=== PATIENT | male | born 1945 | race Caucasian/White ===

== ENCOUNTER 2018-07-30 05:44 | Inpatient (IN) | payer OTHER, BC ==
--- NOTE | 2018-07-30 06:01 | PDANEPAE ---
ANE History of Present Illness TLIF and instrumentation L4-5 ANE Past Medical History - Cardiovascular History Hx Hypertension: No Hx Arrhythmias: Yes Hx Chest Pain: No Hx Coronary Artery / Peripheral Vascular Disease: No Hx CHF / Valvular Disease: No Hx Palpitations: No Cardiovascular History Comment: Frequent PACs and PVCs - VERAPAMIL. Echo on with nl LVEF, mild AR - Pulmonary History Hx COPD: No Hx Asthma/Reactive Airway Disease: No Hx Recent Upper Respiratory Infection: No Hx Oxygen in Use at Home: No Hx Sleep Apnea: No Sleep Apnea Screening Result - Last Documented: Negative - Neurologic History Hx Cerebrovascular Accident: No Hx Seizures: No Hx Dementia: No - Endocrine History Hx Diabetes: No Hypothyroid: No Hyperthyroid: No Obesity: no - Renal History Hx Renal Disorders: No Renal History Comment: TURP - Liver History Hx Hepatic Disorders: No - Neurological & Psychiatric Hx Hx Neurological and Psychiatric Disorders: No - Cancer History Hx Cancer: No - Congenital Disorder History Hx Congenital Disorders: No - GI History GERD: no Hx Gastrointestinal Disorders: No - Other Health History Other Health History: NEG - Chronic Pain History Chronic Pain: Yes (LOW BACK & LEG) - Surgical History Prior Surgeries: HERNIA. TURP ANE Review of Systems Review of Systems: - Exercise capacity METS (RN): 4 METS ANE Patient History - Allergies Allergies/Adverse Reactions: No Known Allergies Allergy (Verified 01/09/14 07:14) - Home Medications Home Medications: Aspirin [Aspirin 81mg (*)] 81 mg PO DAILY 07/17/18 [Last Taken 07/23/18] Magnesium Oxide [Magnesium Oxide 400 mg (*)] 400 mg PO DAILY 07/17/18 [Last Taken 07/29/18] Sulindac [Clinoril 200 MG (*)] 200 mg PO DAILY PRN 07/17/18 [Last Taken Unknown] Verapamil [Calan 120MG (*)] 120 mg PO DAILY 07/17/18 [Last Taken 07/29/18] cycloSPORINE 0.05% [Restasis] 1 each OP DAILY 07/17/18 [Last Taken 07/29/18] - Anes Hx Anes Hx: no prior problems - Smoking Hx Smoking Status: Former smoker (stopped 40 years) - Alcohol Use Alcohol Use: Other (4 drinks/week) - Family Anes Hx Family Anes Hx: none ANE Labs/Vital Signs - Vital Signs Blood Pressure: 130/85 Heart Rate: 69 Height: 160.02 cm Weight: 62.142 kg ANE Physical Exam - Airway Neck exam: FROM Mallampati Score: Class 3 Mouth exam: normal dental/mouth exam, small mouth opening, abnormal chin - Pulmonary Pulmonary: clear to auscultation - Cardiovascular Cardiovascular: regular rate and rhythym - ASA Status ASA Status: III ANE Anesthesia Plan Anesthesia Plan: general endotracheal anesthesia
[2018-07-30] MEDS ORDERED: GABAPENTIN 300 MG CAP PO ONE (06:09)
[2018-07-30] MEDS ORDERED: ACETAMINOPHEN 500 MG TAB PO ONE (06:09)
[2018-07-30] MEDS ORDERED: ceFAZolin 2 GM/DEXTROSE 100 ML IV ONE (06:09)
[2018-07-30] MEDS ORDERED: LR 1,000 ML IV ONE (06:10)
--- NOTE | 2018-07-30 06:38 | PDHPUP ---
History & Physical Update H&P update statement: This history and physical update is based on an assessment of the patient which was completed after admission or registration (within 24 hours), but prior to the surgery/procedure. H&P update: H&P reviewed & patient examined, no change in patient's condition since H&P completed
[2018-07-30] MEDS ORDERED: SULINDAC 200 MG TAB PO PRN (06:42)
[2018-07-30] MEDS ORDERED: CHLORHEXIDINE GLUC HIBICLENS 118 ML BTL TP ONE (06:49)
[2018-07-30] MEDS ORDERED: BUPIVACAINE 0.25% 30 ML SDV ONE (06:49)
[2018-07-30] MEDS ORDERED: BACITRACIN 50,000 UNITS/10 ML SYR IRR ONE (06:50)
[2018-07-30] MEDS ORDERED: EPINEPHrine 1 MG/ML INJ ONE (06:50)
[2018-07-30] MEDS ORDERED: THROMBIN (BOVINE) 5,000 UNIT VIAL TP ONE (06:50)
[2018-07-30] MEDS ORDERED: KETAMINE 200 MG/20 ML VIAL ONE (07:01)
[2018-07-30] MEDS ORDERED: PROPOFOL/EMULSION 500 MG/50 ML BOTTLE IV ONE (07:01)
[2018-07-30] MEDS ORDERED: ROCURONIUM 50 MG/5 ML VIAL ONE (07:01)
[2018-07-30] MEDS ORDERED: DEXAMETHASONE 4 MG/ML VIAL ONE (07:01)
[2018-07-30] MEDS ORDERED: fentaNYL 250 MCG/5 ML INJ ONE (07:02)
[2018-07-30] MEDS ORDERED: MIDAZOLAM 2 MG/2 ML VIAL ONE (07:14)
[2018-07-30] MEDS ORDERED: BISACODYL 10 MG SUPP PR PRN (07:43)
[2018-07-30] MEDS ORDERED: ONDANSETRON DISINTEGRATING 4 MG TAB PO PRN (07:43)
[2018-07-30] MEDS ORDERED: METHOCARBAMOL 750 MG TAB PO PRN (07:43)
[2018-07-30] MEDS ORDERED: diphenhydrAMINE 25 MG CAP PO PRN (07:43)
[2018-07-30] MEDS ORDERED: HYDROmorphONE/DILAUDID 1 MG/ML INJ IVP PRN (07:43)
[2018-07-30] MEDS ORDERED: POLYETHYLENE GLYCOL 3350 17 GM PKT PO PRN (07:43)
[2018-07-30] MEDS ORDERED: MAGNESIUM HYDROXIDE 30 ML UDCUP PO PRN (07:43)
[2018-07-30] MEDS ORDERED: ONDANSETRON 4 MG/2 ML VIAL IVP PRN ×2 (07:43→10:35)
[2018-07-30] MEDS ORDERED: LACTULOSE 20 GM/30 ML UDCUP PO PRN (07:43)
[2018-07-30] MEDS ORDERED: oxyCODONE IR 5 MG TAB PO PRN (07:43)
[2018-07-30] MEDS ORDERED: PHENYLEPHRINE HCL 100 MCG/ML SYR ONE (07:45)
[2018-07-30] MEDS ORDERED: PHENYLEPHRINE 10 MG/ML SDV ONE (08:33)
[2018-07-30] MEDS ORDERED: ePHEDrine SULFATE 25 MG/5 ML SYR ONE (09:17)
[2018-07-30] MEDS ORDERED: ONDANSETRON 4 MG/2 ML VIAL ONE (10:00)
[2018-07-30] MEDS ORDERED: PROPOFOL 200 MG/20 ML VIAL ONE (10:04)
[2018-07-30] MEDS ORDERED: NALOXONE HCL 0.4 MG/ML INJ IVP PRN (10:35)
[2018-07-30] MEDS ORDERED: HYDROmorphONE/DILAUDID 2 MG/ML INJ IVP PRN (10:35)
--- NOTE | 2018-07-30 10:48 | POSTOPPROG ---
Post Op Note Date of Operation: 07/30/18 Surgeon: Vern Ortega Floor Winder: ALEC Rivas Anesthesiologist: MD Brett Anesthesia: GET(General Endotracheal), Local (Specify) Pre-op Diagnosis: lumbar stenosis L4/5 Post-op Diagnosis: lumbar stenosis L4/5 Indication: BLE pain Procedure: TLIF L4/5 Findings: see op report Inf/Abcess present in the surg proc area at time of surgery?: No Depth: Deep Incisional (Fascial) EBL: 100-500 Total fluids administered: see anesthesia record Complications: none Drains: Adair Walker
[2018-07-30] MEDS ORDERED: SUGAMMADEX SODIUM 200 MG/2 ML VIAL IVP ONE (10:50)
--- NOTE | 2018-07-30 10:51 | SOAPPROG ---
SOAP Progress Note Assessment/Plan: Post Op Visit: S: Awake and alert. NAD. Pt with expected lower back pain O: AFVSS/PERRLA/EOMI No droop CN 2-12 grossly intact +lt touch 5/5 BUE/BLE = CDI TITA in place A/P: 72 yo male that is s/p TLIF L4/5 -orders in place -call with any questions or concerns -take medications as directed -seen by Dr Ortega as well -PT/OT ordered -brace when out of bed Objective: Vital Signs Temp Pulse Resp BP Pulse Ox 69 130/85 H 07/30/18 08:10 07/30/18 08:10 ICD10 Worksheet Patient Problems: Problems Problem Status Onset Arthrodesis status Acute Lumbago Acute Lumbar radicular pain Acute Lumbar spine pain Acute Lumbar stenosis Acute - ICD10 Problem Qualifiers (1) Lumbar spine pain (2) Lumbago (3) Lumbar stenosis (4) Lumbar radicular pain (5) Arthrodesis status
--- NOTE | 2018-07-30 11:03 | POSTANESTH ---
Post Anesthetic Evaluation Cardiovascular Status: Similar to Pre-Op Cond Respiratory Status: Normal, Stable Level of Consciousness/Mental Status: Can Participate in Eval Pain Control: Adequate, Prn Tx Ordered Nausea/Vomiting Control: Adequate, Prn Tx Ordered Complications Possibly Related to Anesthesia: None Noted
--- NOTE | 2018-07-30 11:05 | PDMN ---
Medical Necessity Medical necessity: MCG S820 Lumbar Fusion 3 days: 72yo s/p L4/5 TLIF Lum Guevara Fusion w/ MARIELLA Andrade IP only
[2018-07-30] MEDS ORDERED: fentaNYL 100 MCG/2 ML INJ ONE (11:13)
[2018-07-30] MEDS ORDERED: METHOCARBAMOL 750 MG TAB ONE (11:14)
[2018-07-30] MEDS: fentaNYL 100 MCG/2 ML INJ IVP PRN ×2 (11:16→11:36)
[2018-07-30] MEDS ORDERED: HYDROmorphONE/DILAUDID 2 MG/ML INJ ONE (11:34)
[2018-07-30] MEDS: NS 1,000 ML IV SCH ×3 (13:21→22:34)
[2018-07-30] MEDS: FAMOTIDINE 20 MG TAB PO SCH ×2 (13:32→20:19)
[2018-07-30] MEDS: SENNOSIDES/DOCUSATE SODIUM TAB PO SCH ×3 (13:33→20:19)
[2018-07-30] MEDS ORDERED: VERAPAMIL 120 MG TAB PO SCH ×2 (14:15→20:00)
[2018-07-30] MEDS: GABAPENTIN 300 MG CAP PO SCH ×2 (14:26→22:11)
[2018-07-30] MEDS: ACETAMINOPHEN 500 MG TAB PO SCH ×2 (14:26→22:11)
--- NOTE | 2018-07-30 15:08 | GOP ---
DATE OF OPERATION: 07/30/2018 SURGEON: Victor Manuel Ortega MD NEUROSURGEON: Victor Manuel Ortega MD GLASS ETCHER HELPER: Santosh Rivas PA-C PREOPERATIVE DIAGNOSIS: 1. Lumbar spondylolisthesis L4-5. 2. Severe stenosis L4-5. 3. Bilateral lumbosacral radiculopathy. 4. Degenerative lumbar scoliosis. 5. Multilevel lumbar degenerative disk disease. POSTOPERATIVE DIAGNOSIS: 1. Lumbar spondylolisthesis L4-5. 2. Severe stenosis L4-5. 3. Bilateral lumbosacral radiculopathy. 4. Degenerative lumbar scoliosis. 5. Multilevel lumbar degenerative disk disease. PROCEDURE PERFORMED: Posterior lateral and intervertebral arthrodesis with bilateral decompressions at L4-5 (79648), placement of biomechanical intervertebral device L4-5 (11687), nonsegmental instrume ntation across a single interspace L4-5 (64042), same incision bone graft harvest, microscope, spinal stereotaxis. FINDINGS: ESTIMATED BLOOD LOSS: 150 cc. INDICATIONS: The patient is a mature gentleman who had terrible pain radiating down both legs, who f brandon conservative management. His MRI demonstrated spondylolisthesis at L4-5. He really had a pret ty severe multilevel degenerative curve, even at L2-3, L3-4, rostral to this. I thought his symptoms were coming from L4-5 alone and at this level alone could be addressed. He really wanted a minimali st approach. He was not interested in the multilevel fusion, although I did indicate that this may be come necessary in the future. He wanted to proceed with the smallest possible operation and he was o ffered a single-level decompression and fusion. The risk of screw and hardware malposition, malfunct ion was discussed as well as the risk of nerve injury, spinal fluid leak, continued symptoms. He kne w that he may fail to improve with the smaller surgery and he may require larger surgery to solve the problem. He wanted to proceed despite the risks. He knew there was a chance of ellen nonunion. DESCRIPTION OF PROCEDURE: Patient was taken to the operating room, placed in the supine position. G eneral anesthesia was begun. He was flipped prone onto the Adair table. Care was taken to pad all points of contact. His back was sterilely prepped and draped in usual fashion. A localizing x-ray was taken. We made a midline incision that was about 5 cm in length. The subcutaneous tissue was di ssected using Bovie cautery down to the fascia and a subperiosteal dissection was made down to the L4 -5 lamina. Self-retaining retractor was placed. A localizing x-ray was taken. We denuded the bilat eral hypertrophic facets at L4-5 and placed pedicle screws bilaterally at L4 and L5. They stimulated at acceptable levels. 3D imaging was performed and they were in excellent position. We placed 40 m m rods down over the screws and distracted on the right to reduce the concavity on the right side of the spine at that level and then I locked them in place. We then removed the soft tissue of the bone , removed the spinous process of L4 partially, drilled bilateral L4-5 lamina and under the microscope , decompressed the nerve roots on either side. On the right-hand side, there was a severe indentation , hourglass appearance at the nerve root entry zone where the L5 nerve root pierced the thecal sac. We got great decompression of the area and of the neural foramen. On the left side there was similar indentation, but it was not as severe as on the right side. We mobilized the left L5 nerve root, sw ept it medially, incised the L4-5 disk and removed the disk and the cartilaginous endplates. We roug hened the subchondral bone to create arthrodesis at L4-5 and packed it with bone autograft and BMP sp onge. We then took an expandable device, inserted it under fluoroscopic guidance and expanded it at L4-5 with a 7 x 28 mm Elevate cage by [employer]. It was inserted and expanded and it looked great. We locked all the cap screws according to company specification. Decorticated all the remaining bone posterolaterally and placed bone autograft and BMP posterolaterally bilaterally, followed by subfasc ial drain. We then closed the incision in multiple layers using Vicryl sutures and Steri-Strips were applied to the skin. The patient was reversed from anesthesia, extubated, and transferred to [facility] room in stable condition. There were no complications. COMPLICATIONS: None. /[id number]/MODL
[2018-07-30] MEDS: cycloSPORINE 0.05% 30 DROPERETTE/BOX OP SCH (15:47)
[2018-07-30] MEDS: ceFAZolin 2 GM/DEXTROSE 100 ML IV SCH ×2 (16:09→23:47)
[2018-07-30] MEDS: MAGNESIUM OXIDE 400 MG TAB PO SCH (17:39)
[2018-07-31] MEDS: ACETAMINOPHEN 500 MG TAB PO SCH ×2 (05:20→13:05)
[2018-07-31] MEDS: GABAPENTIN 300 MG CAP PO SCH ×2 (05:20→13:05)
--- NOTE | 2018-07-31 07:46 | NEUSURGPN ---
Date of Surgery: 07/30/18 Post Op Day: 1 Assessment/Plan: Assessment: 72 yo male that is s/p TLIF L4/5 POD #1 Plan: -s/p TLIF L4/5-pt with expected lower back pain, legs feel better -PT/OT pending -orders in place -call with any questions or concerns -take medications as directed -seen by Dr Ortega as well -no bending or twisting -post op xrays pending -brace when out of bed Subjective: Awake and alert. Sitting in chair. No [place]/neck/chest/abd or gu complaints. No f/c/n/v/d. Objective: AFVSS/PERRLA/EOMI No droop CN 2-12 grossly intact +lt touch 5/5 BUE/BLE = CDI TITA in place Neuro Check Frequency: per routine Urinary Catheter in Place: No - Physician Discussed Patient with Dr.: Jordan Patient Seen by : Jordan Neurosurgery Physical Exam - Vitals, I&O, Labs I and O 07/30/18 07/31/18 08/01/18 05:59 05:59 05:59 Intake Total 2762 Output Total 1195 Balance 1567 Weight 62.142 kg Intake: Oral (ml) 1520 IV Intake (ml) 1025 IV Infused (ml) 217 Ns 1,000 ml @ 75 mls/hr 117 IV CONT DERRICK Rx#: [id number] ceFAZolin 2 GM/DEXTROSE 100 100 ml @ 200 mls/hr IV Q8H DERRICK Rx#:[id number] Output: Urine (ml) 750 Catheter 300 Urinal 450 Estimated Blood Loss (ml) 150 TITA Drain Output (ml) 295 Back Adair Walker 295 Other: Intake Quantity Yes Sufficient Output Comment Catheter st cath Number of Voids Urinal 1 Bladder Scan Volume (ml) Catheter 500 Urinal 500 Vital Signs Temp Pulse Resp BP Pulse Ox 36.9 C 64 14 86/51 L 93 07/31/18 04:00 07/31/18 04:00 07/31/18 04:00 07/31/18 04:00 07/31/18 04:00 Laboratory Results 07/31/18 05:24 ICD10 Worksheet Patient Problems: Problems Problem Status Onset Arthrodesis status Acute Lumbago Acute Lumbar radicular pain Acute Lumbar spine pain Acute Lumbar stenosis Acute - ICD10 Problem Qualifiers (1) Lumbar spine pain (2) Lumbago (3) Lumbar stenosis (4) Lumbar radicular pain (5) Arthrodesis status
[2018-07-31] MEDS: cycloSPORINE 0.05% 30 DROPERETTE/BOX OP SCH (08:07)
[2018-07-31] MEDS: FAMOTIDINE 20 MG TAB PO SCH (08:07)
[2018-07-31] MEDS: MAGNESIUM OXIDE 400 MG TAB PO SCH (08:07)
[2018-07-31] MEDS: SENNOSIDES/DOCUSATE SODIUM TAB PO SCH (08:07)
[2018-07-31 12:58] VITALS: BP 117/69
--- NOTE | 2018-07-31 13:45 | ASMTCMCOM ---
CM Note CM Note Notes: Pt had planned back surgery, resides with spouse. Pt was pre-arranged by MD office with [facility]. PT rec home/outpatient, OT rec home. Pt does want [facility] and Sherlyn with [facility] came to meet with pt today. Pt medically stable for d/c. Date Signed: 07/31/2018 01:45 PM Electronically Signed By:MEAGHAN Gray
[2018-08-02] MEDS ORDERED: ENOXAPARIN 40 MG/0.4 ML SYR SC SCH (09:00)
== END 2018-07-31 15:47 | disposition home or self-care (01) | DRG 455 ==
LOC: F3N 05:44
PROVIDERS: ADMIT Neurological Surgery; ATTEND Neurological Surgery
DX: M48.061 Spinal stenosis, lumbar region without neurogenic claudication (principal); M43.16 Spondylolisthesis, lumbar region; M51.16 Intervertebral disc disorders with radiculopathy, lumbar region; M51.17 Intervertebral disc disorders with radiculopathy, lumbosacral region; M41.9 Scoliosis, unspecified; I49.1 Atrial premature depolarization; I49.3 Ventricular premature depolarization
CPT/HCPCS: 97161-GP; 97166-GO; 97535-GO; C1713; J0171; J0690; J1100; J1170; J2250; J2370; J2405; J2704; J3010

== ENCOUNTER → 2018-09-08 | Outpatient (CLI) | payer OTHER, BC ==
[~2018-09-08] MED LIST: GADOBUTROL 10 ML VIAL IVP ONE
== END ==
LOC: FIMAGING 12:28
PROVIDERS: ATTEND Specialist
DX: N40.0 Benign prostatic hyperplasia without lower urinary tract symptoms (principal); R97.20 Elevated prostate specific antigen [PSA]
CPT/HCPCS: 72197; 76377; A9585